=== PATIENT | female | born 1975 | race Caucasian/White ===

== ENCOUNTER 2017-01-24 05:21 | Emergency (ER) | payer BC ==
[~2017-01-24] VITALS: Ht 167.6 cm; Wt 112.9 kg
[2017-01-24 05:23] VITALS: TEMP 36.6; Ht 167.6 cm; Wt 112.9 kg
--- NOTE | 2017-01-24 05:48 | EMERGENCY ROOM VISIT NOTE ---
History Report prepared by Ulysses: Gary Loja Under the Supervision of: Dr. Shaunna Yan D.O. First contact with patient: 05:30 Chief Complaint: CHEST PAIN Stated Complaint: HEAVY CHEST,DISCOMFORT ON BOTH SIDES History of Present Illness The patient is a 41 year old female who presents to the Emergency Room with complaints of persistent chest discomfort that started over 24 hours ago. The patient describes the discomfort as a heavy feeling at the top of her chest. The patient also complains of discomfort going down both her sides. Prior to arrival, the patient was packing her car when she felt a sharp pain radiate down her left side which is why she decided to present to the ED for further evaluation. The patient notes she has had symptoms similar to the chest heaviness she is describing in the past, however, they have never lasted this long before. The patient also notes has had a cough that is not productive. She describes it as an "acid-y" cough similar to burning. She does have a history of GERD. The patient states that she has been under more stress lately and has a history of some anxiety. She started a prescription of Zoloft 25 mg yesterday. The patient states that the chest discomfort started before she took her first dose of Zoloft. The patient notes some swelling in her hands. The patient denies swelling or cramping in her legs, recent long travel, or pain with deep breath. She denies shortness of breath at this time. Source of History: patient Onset: over 24 hours ago Position: chest Quality: other (heaviness) Timing: other (persistent) Associated Symptoms: + cough, No SOB Note: Other associated symptoms: discomfort going down both sides, sharp pain in left side, more stress, swelling in hands Denies: swelling or cramping in legs, long travel, pain with deep breaths Review of Systems See HPI for pertinent positives & negatives. A total of 10 systems reviewed and were otherwise negative. Past Medical & Surgical Medical Problems: (1) Bronchitis (2) Diabetes Surgical Problems: (1) delivery delivered (2) Tonsillectomy planned Family History FH: cancer FH: diabetes mellitus FH: gallbladder disease FH: hypertension Social History Smoking Status: Never Smoker Drug Use: none Marital Status: Housing Status: lives with family Occupation Status: employed Current/Historical Medications Scheduled Famotidine (Pepcid), 40 MG PO DAILY Hctz/Losartan (Hyzaar 25MG/100MG), 1 TAB PO DAILY Insulin Aspart 70/30 (Novolog Mix 70/30), 68 UNITS SQ BIDM Insulin Glargine (Lantus Solostar), 50 UNITS SQ QPM Levocetirizine Dihydrochloride (Xyzal Allergy 24Hr), 5 MG PO DAILY Lorazepam (Ativan), 1 MG PO Q4 Sertraline (Zoloft), 25 MG PO DAILY Allergies Coded Allergies: Azithromycin (Verified Allergy, Unknown, hives, 01/24/17) Cephalexin (Verified Allergy, Unknown, hives, 01/24/17) Erythromycin (Verified Allergy, Unknown, HIVES, 01/24/17) Penicillins (Verified Allergy, Unknown, hives, 01/24/17) Physical Exam Vital Signs Date Time Temp Pulse Resp B/P Pulse Ox O2 Delivery O2 Flow Rate FiO2 01/24/17 06:59 70 12 148/107 98 Room Air 01/24/17 06:27 72 18 150/119 99 Room Air 01/24/17 05:38 Room Air 01/24/17 05:25 79 01/24/17 05:23 36.6 82 20 179/104 100 Room Air Physical Exam HEENT: Head - normocephalic and atraumatic Pupils are equal, round, and reactive to light. Extraocular eye muscles are intact, and sclera are anicteric. Nose - moist nasal mucosa without discharge. Mouth - moist buccal mucosa. Oropharynx is nonerythematous and there is no tonsillar exudate or edema noted. Neck: Supple; no JVD, nuchal rigidity, cervical lymphadenopathy, or auscultated bruits. Heart: Regular rate and rhythm. There is a normal S1 and S2 with no murmurs, clicks, or gallops appreciated. Lungs: Clear to auscultation bilaterally with no wheezes, rales, or rhonchi. Abdomen: Soft, completely nontender, nondistended, with good bowel sounds. There are no palpable pulsatile masses or hepatosplenomegaly. There is no guarding, rigidity, or rebound noted. Extremities: No evidence of cyanosis, clubbing, or edema. There are easily palpable peripheral pulses. Skin: warm and dry with good turgor and no rashes. Medical Decision & Procedures ER Provider Diagnostic Interpretation: Chest X-ray interpreted by me: Borderline cardiomegaly, no pulmonary infiltrate, no consolidation. Laboratory Results 01/24/17 05:35 Red Blood Count 4.81, Mean Corpuscular Volume 85.0, Mean Corpuscular Hemoglobin 29.1, Mean Corpuscular Hemoglobin Concent 34.2, Mean Platelet Volume 10.4, Neutrophils (%) (Auto) 41.1, Lymphocytes (%) (Auto) 48.7, Monocytes (%) (Auto) 6.2, Eosinophils (%) (Auto) 3.4, Basophils (%) (Auto) 0.4, Neutrophils # (Auto) 2.19, Lymphocytes # (Auto) 2.59, Monocytes # (Auto) 0.33, Eosinophils # (Auto) 0.18, Basophils # (Auto) 0.02 01/24/17 05:35 Test 01/24/17 05:35 01/24/17 06:52 White Blood Count 5.32 K/uL (4.8-10.8) Red Blood Count 4.81 M/uL (4.2-5.4) Hemoglobin 14.0 g/dL (12.0-16.0) Hematocrit 40.9 % (37-47) Mean Corpuscular Volume 85.0 fL (80-100) Mean Corpuscular Hemoglobin 29.1 pg (25-34) Mean Corpuscular Hemoglobin Concent 34.2 g/dl (32-36) Platelet Count 275 K/uL (130-400) Mean Platelet Volume 10.4 fL (7.4-10.4) Neutrophils (%) (Auto) 41.1 % Lymphocytes (%) (Auto) 48.7 % Monocytes (%) (Auto) 6.2 % Eosinophils (%) (Auto) 3.4 % Basophils (%) (Auto) 0.4 % Neutrophils # (Auto) 2.19 K/uL (1.4-6.5) Lymphocytes # (Auto) 2.59 K/uL (1.2-3.4) Monocytes # (Auto) 0.33 K/uL (0.11-0.59) Eosinophils # (Auto) 0.18 K/uL (0-0.5) Basophils # (Auto) 0.02 K/uL (0-0.2) RDW Standard Deviation 39.7 fL (36.4-46.3) RDW Coefficient of Variation 12.9 % (11.5-14.5) Immature Granulocyte % (Auto) 0.2 % Immature Granulocyte # (Auto) 0.01 K/uL (0.00-0.02) Anion Gap 6.0 mmol/L (3-11) Est Creatinine Clear Calc Drug Dose 130.5 ml/min Estimated GFR () 119.4 Estimated GFR (Non- 103.0 BUN/Creatinine Ratio 16.8 (10-20) Calcium Level 8.8 mg/dl (8.5-10.1) Total Bilirubin 0.7 mg/dl (0.2-1) Direct Bilirubin 0.1 mg/dl (0-0.2) Aspartate Amino Transf (AST/SGOT) 14 U/L (15-37) Alanine Aminotransferase (ALT/SGPT) 24 U/L (12-78) Alkaline Phosphatase 69 U/L (45-117) Total Protein 8.1 gm/dl (6.4-8.2) Albumin 3.8 gm/dl (3.4-5.0) Lipase 110 U/L (73-393) Thyroid Stimulating Hormone (TSH) 1.750 uIu/ml (0.300-4.500) Total Creatine Kinase 183 U/L (26-192) Creatine Kinase MB 6.4 ng/ml (0.5-3.6) Creatine Kinase MB Ratio 3.5 (0-3.0) Troponin I < 0.015 ng/ml (0-0.045) Laboratory results per my review. Medications Administered Medications (Trade) Dose Ordered Sig/Wm Route Start Time Stop Time Status Last Admin Dose Admin Lidocaine HCl (Viscous Lidocaine 2% Soln) 10 ml NOW STAT PO 01/24/17 05:49 01/24/17 05:50 DC 01/24/17 05:56 10 ML Al Hydroxide/Mg Hydroxide (Maalox Susp) 30 ml NOW STAT PO 01/24/17 05:49 01/24/17 05:50 DC 01/24/17 05:55 30 ML Lorazepam (Ativan Inj) 1 mg NOW STAT IV 01/24/17 06:20 01/24/17 06:21 DC 01/24/17 06:29 1 MG Procedure Maalox Susp PO Lidocaine HCl PO Ativan Inj IV Klor-Con Tab PO ECG Indication: chest pain Rate (beats per minute): 73 Rhythm: normal sinus Findings: no acute ischemic change, no ectopy Comparison ECG Date: no prior available ED Course 0536: Past medical records reviewed. The patient was evaluated in room A3. A complete history and physical exam was performed. An IV lock was initiated and labs were drawn as above. Twelve-lead EKG was obtained as described above. 0549: Ordered Maalox Susp 30 ml PO, Lidocaine HCl 10 ml PO. Patient had a portable chest x-ray as described above 0608: At this time, I reevaluated the patient and she said that the GI cocktail helped the acid in her throat a lot. She still seems anxious so medications were ordered. Her blood pressure was retaken and it was 150/119. 0620: Ordered Ativan Inj 1 mg IV. 0631: At this time, I reevaluated the patient and she still feels the chest heaviness. She was just administered the Ativan 10 minutes ago. Her cardiac enzymes will be repeated 90 minutes after the first set was drawn. 0710: Ordered Klor-Con Tab 20 meq PO. 0711: At this time, I reevaluated the patient and she was feeling much better. She states she feels more relaxed and her chest heaviness is resolved. Her repeat blood work was drawn a few minutes ago. 0735: Upon reevaluation, the patient is resting comfortably. She has a negative repeat troponin and total CK, CK-MB, and CK-MB ratio have decreased. I discussed findings and results with her. She verbalized agreement of the treatment plan. The patient was discharged home. Medical Decision The patient is a 41 year old female who presents to the ED with chest pain. Differential diagnosis includes anxiety, cardiac ischemia, hypertensive emergency, pleurisy, GERD or costochondritis. Labs interpreted by me: no leukocytosis, normal H&H, potassium 3.1, normal renal function, glucose 232, normal LFTs, normal TSH, troponin <0.015, total CK 226, CKMB 8.2, CKMB ratio 3.6. Repeat cardiac enzymes: troponin still <0.015, total CK came down to 183, CKMB down to 6.4, CKMB ratio down to 3.5. This is a 41-year-old female patient who is morbidly obese with history of diabetes who presents to the emergency department with some chest tightness and acid in her throat. I believe the patient is having some exacerbation of GERD. The GI cocktail has helped. However, she does have some component of anxiety. She is significantly hypertensive and has moderate hyperglycemia. Patient was also noted to be hypokalemic. The patient recently started Zoloft. I've asked her to continue this as it may potentially improve her blood pressure. Otherwise, the patient will need close follow-up with her PCP with regards to the blood pressure and hyperglycemia. The patient was told to return to the ER for worsening chest discomfort. She was asked to limit her stress and anxiety. She was given a script for ativan Impression Primary Impression: Chest heaviness Additional Impressions: Hypokalemia Hyperglycemia due to type 2 diabetes mellitus Scribe Attestation The scribe's documentation has been prepared under my direction and personally reviewed by me in its entirety. I confirm that the note above accurately reflects all work, treatment, procedures, and medical decision making performed by me. Departure Information Dispostion Home / Self-Care Prescriptions Lorazepam (ATIVAN) 1 Mg Tab 1 MG PO Q4 for Anxiety, #20 TAB Prov: Shaunna Yan, D.OEmmanuelle 01/24/17 Referrals Jared Ortez MD (PCP) Forms HOME CARE DOCUMENTATION FORM, IMPORTANT VISIT INFORMATION Patient Instructions Anxiety Body Response, ED Chest Pain Atypical Unkn Cause, ED Hyperglycemia Diabetic, Hypokalemia Dc, My [facility] Additional Instructions Rest. Limit stress and anxiety Watch your BP closely - follow up with your PCP. Watch your blood sugar closely and follow up with PCP. REturn to the ER for worsening chest discomfort. Take foods high in potassium Problem Qualifiers
[2017-01-24] MEDS ORDERED: LIDOCAINE HCL 2% VISC SOLN 20 ML UDC PO STA (05:49)
[2017-01-24] MEDS ORDERED: ALUMINUM/MAGNESIUM SUSP 30 ML UDC PO STA (05:49)
[2017-01-24] MEDS ORDERED: FAMO40TA6 PO (05:51)
[2017-01-24] MEDS ORDERED: HYZ/10015 PO (05:52)
[2017-01-24] MEDS ORDERED: LEVO5TAB7 PO (05:55)
[2017-01-24] MEDS ORDERED: INSDGIPEN SQ (05:56)
[2017-01-24 05:58] LABS: BASO % 0.4 %; BASO ABS # 0.02 K/uL (0-0.2); COMPLETE YES; EOS % 3.4 %; HEMATOCRIT 40.9 % (37-47); IG% 0.2 %; LYMPH % 48.7 %; LYMPH ABS # 2.59 K/uL (1.2-3.4); MEAN CORPUSCULAR HEMOGLOBIN 29.1 pg (25-34); MEAN CORPUSCULAR HGB CONC 34.2 g/dl (32-36); MEAN PLATELET VOLUME 10.4 fL (7.4-10.4); MONO % 6.2 %; NEUT % 41.1 %; PLATELET COUNT 275 K/uL (130-400); RED BLOOD COUNT 4.81 M/uL (4.2-5.4); WHITE BLOOD COUNT 5.32 K/uL (4.8-10.8)
[2017-01-24] MEDS ORDERED: NVLGI7030 SQ (05:58)
[2017-01-24] MEDS ORDERED: SERT50TA PO (06:00)
[2017-01-24 06:08] LABS: ALT/SGPT 24 U/L (12-78); AST/SGOT 14 U/L (15-37); BLOOD UREA NITROGEN 12 mg/dl (7-18); BUN/CREATININE RATIO 16.8 (10-20); CALCIUM 8.8 mg/dl (8.5-10.1); CARBON DIOXIDE 30 mmol/L (21-32); CHLORIDE 104 mmol/L (98-107); CREATININE 0.73 mg/dl (0.60-1.20); GLUCOSE 232 mg/dl (70-99); POTASSIUM 3.1 mmol/L (3.5-5.1); SODIUM 140 mmol/L (136-145)
[2017-01-24 06:19] LABS: ALKALINE PHOSPHATASE 69 U/L (45-117); CKMB/CK RATIO 3.6 (0-3.0)
[2017-01-24] MEDS ORDERED: LORAZEPAM 2 MG/ML 1 ML VIAL IV STA (06:20)
[2017-01-24] MEDS ORDERED: POTASSIUM CHLORIDE 20 MEQ TABCR PO STA (07:10)
[2017-01-24 07:22] LABS: CKMB/CK RATIO 3.5 (0-3.0)
[2017-01-24] MEDS ORDERED: ATV/1 PO (07:38)
[2017-01-24 07:54] VITALS: BP 134/100; PULSE 81; O2SAT 97
--- NOTE | 2017-01-24 08:31 | DIAGNOSTIC IMAGING REPORT ---
SINGLE VIEW CHEST CLINICAL HISTORY: Atypical chest pain. FINDINGS: An AP, portable, upright chest radiograph is obtained. No prior studies are available for comparison at the time of dictation. The examination is degraded by portable technique, large body habitus, and patient rotation. The cardiomediastinal silhouette is unremarkable. The lungs and pleural spaces are clear. No pneumothorax is seen. The bony thorax is grossly intact. IMPRESSION: No active disease in the chest. Electronically signed by: Jaylen Lugo M.D. 01/24/2017 8:29 AM Dictated Date/Time: 01/24/2017 8:29 AM
== END 2017-01-24 07:57 | disposition home or self-care (01) ==
LOC: C.EDB 05:22 → C.EDA 07:57
DX: R07.89 Other chest pain (principal); E87.6 Hypokalemia; E11.65 Type 2 diabetes mellitus with hyperglycemia; K21.9 Gastro-esophageal reflux disease without esophagitis; Z98.890 Other specified postprocedural states; Z79.4 Long term (current) use of insulin; Z79.899 Other long term (current) drug therapy; Z88.0 Allergy status to penicillin; Z88.1 Allergy status to other antibiotic agents; Z88.8 Allergy status to other drugs, medicaments and biological substances; Z80.9 Family history of malignant neoplasm, unspecified; Z83.3 Family history of diabetes mellitus; Z83.79 Family history of other diseases of the digestive system; Z82.49 Family history of ischemic heart disease and other diseases of the circulatory system

== ENCOUNTER 2017-02-14 22:30 | Emergency (ER) | payer BC ==
[~2017-02-14] VITALS: Ht 167.6 cm; Wt 110.1 kg
[~2017-02-14 22:30] MED LIST: FAMO40TA6 PO; HYZ/10015 PO; INSDGIPEN SQ; LEVO5TAB7 PO; NVLGI7030 SQ; SERT50TA PO
[2017-02-14 22:32] VITALS: TEMP 36.7; Ht 167.6 cm; Wt 110.1 kg
[2017-02-14] MEDS ORDERED: KETOROLAC TROMETHAMINE 30 MG/ML VIAL IV STA (22:44)
--- NOTE | 2017-02-14 22:54 | EMERGENCY ROOM VISIT NOTE ---
History Report prepared by Ulysses: Neal Carr Under the Supervision of: Dr. Giacomo Morin M.D. First contact with patient: 22:34 Chief Complaint: ABDOMINAL PAIN Stated Complaint: PAIN UPPER RIGHT SIDE-GALLBLADDER? History of Present Illness The patient is a 41 year old female who presents to the Emergency Room with complaints of worsening, right upper quadrant, abdominal pain beginning two hours ago. The patient states that she has had intermittent right upper quadrant abdominal pain for a couple of months. She notes that she suspects it is gallbladder issues because she has a strong family history of gallbladder disease. She reports that her pain began tonight, and it would not go away. The patient notes that she is also nauseous. She reports that for dinner she ate noodles and chicken. The patient states that she has cut fast food from her diet because of her suspected issues. She notes that she has not seen anyone for her symptoms and has had 2 children. The patient denies chest pain, shortness of breath, fevers, vomiting, vaginal bleeding or discharge, headaches , rashes, cough, back pain, and chance of being . She states that she has type II diabetes mellitus, and she takes NovoLog and Lantus. Source of History: patient Onset: two hours ago Position: abdomen (RUQ) Timing: worsening Associated Symptoms: + nausea, No fevers, No headache, No cough, No chest pain, No SOB, No vomiting, No back pain, No rash Note: The patient denies vaginal bleeding or discharge and chance of being . Review of Systems See HPI for pertinent positives & negatives. A total of 10 systems reviewed and were otherwise negative. Past Medical & Surgical Medical Problems: (1) Bronchitis (2) Diabetes Surgical Problems: (1) delivery delivered (2) Tonsillectomy planned Old medical records were reviewed. Nurse's notes were reviewed and I agree with. Family History FH: cancer FH: diabetes mellitus FH: gallbladder disease FH: hypertension Social History Smoking Status: Never Smoker Drug Use: none Marital Status: Housing Status: lives with family Occupation Status: employed Current/Historical Medications Scheduled Famotidine (Pepcid), 40 MG PO DAILY Hctz/Losartan (Hyzaar 25MG/100MG), 1 TAB PO DAILY Insulin Aspart 70/30 (Novolog Mix 70/30), 68 UNITS SQ BIDM Insulin Glargine (Lantus Solostar), 50 UNITS SQ QPM Levocetirizine Dihydrochloride (Xyzal Allergy 24Hr), 5 MG PO DAILY Sertraline (Zoloft), 25 MG PO DAILY Allergies Coded Allergies: Azithromycin (Verified Allergy, Unknown, hives, 01/24/17) Cephalexin (Verified Allergy, Unknown, hives, 01/24/17) Erythromycin (Verified Allergy, Unknown, HIVES, 01/24/17) Penicillins (Verified Allergy, Unknown, hives, 01/24/17) Physical Exam Vital Signs Date Time Temp Pulse Resp B/P (MAP) Pulse Ox O2 Delivery O2 Flow Rate FiO2 02/14/17 22:32 36.7 82 18 180/88 98 Room Air Physical Exam General: Non-ill appearing, mild pain, middle aged female. HEENT: Normal cephalic atraumatic. Pupils are equal round and reactive to light. Extraocular movements are intact. Oropharynx is pink with moist mucous membranes. No swelling of the mouth lips or tongue. Neck: Supple with a midline trachea. No meningeal signs or stiffness, no JVD or bruits. No Stridor. Chest: Clear to auscultation bilaterally. No wheezes or rhonchi. No increased work of breathing. Heart: regular rate and rhythm. Abdomen: Soft, nondistended without rebound guarding or rigidity. Mild tenderness to the RUQ Extremities: No cyanosis clubbing or edema. No calf tenderness or assymetry Spine/Back. Non tender to palpation. No CVA tenderness Skin: Good turgor without rashes. Neurologic exam: Cranial nerves two through 12 are intact. Motor and sensation are intact and symmetrical throughout. Medical Decision & Procedures ER Provider Diagnostic Interpretation: Radiology results as stated below per my review and radiologist interpretation: Chest x-ray per my interpretation reveals no pneumothorax, failure, or infiltrate. US GALLBLADDER: No gallstones. Gallbladder wall is top normal in thickness. Negative sonographic Daniels sign. No pericholecystic fluid. No biliary dilation. The liver parenchyma is increased in echogenicity suggestive of fatty infiltration. Liver measures 18.4cm long. Right kidney is unremarkable. No free fluid. Radiologist: Griffin Lopez MD Study ready at 00:52 and initial results transmitted at 01:38 Laboratory Results 02/14/17 23:05 Red Blood Count 4.54, Mean Corpuscular Volume 83.3, Mean Corpuscular Hemoglobin 28.0, Mean Corpuscular Hemoglobin Concent 33.6, Mean Platelet Volume 10.5, Neutrophils (%) (Auto) 45.0, Lymphocytes (%) (Auto) 41.9, Monocytes (%) (Auto) 9.5, Eosinophils (%) (Auto) 3.2, Basophils (%) (Auto) 0.3, Neutrophils # (Auto) 3.23, Lymphocytes # (Auto) 3.01, Monocytes # (Auto) 0.68, Eosinophils # (Auto) 0.23, Basophils # (Auto) 0.02 02/14/17 23:05 Test 02/14/17 23:01 02/14/17 23:05 02/14/17 23:12 Urine Color DK YELLOW Urine Appearance CLOUDY (CLEAR) Urine pH 5.5 (4.5-7.5) Urine Specific [place] 1.036 (1.000-1.030) Urine Protein NEG (NEG) Urine Glucose (UA) 3+ (NEG) Urine Ketones TRACE (NEG) Urine Occult Blood NEG (NEG) Urine Nitrite NEG (NEG) Urine Bilirubin NEG (NEG) Urine Urobilinogen NEG (NEG) Urine Leukocyte Esterase NEG (NEG) Urine WBC (Auto) 10-30 /hpf (0-5) Urine RBC (Auto) 0-4 /hpf (0-4) Urine Hyaline Casts (Auto) 0 /lpf (0-5) Urine Epithelial Cells (Auto) >30 /lpf (0-5) Urine Bacteria (Auto) 2+ (NEG) Urine Pathogenic Casts /lpf (0) Urine Yeast (Auto) PRESENT (NONE PRSENT) White Blood Count 7.18 K/uL (4.8-10.8) Red Blood Count 4.54 M/uL (4.2-5.4) Hemoglobin 12.7 g/dL (12.0-16.0) Hematocrit 37.8 % (37-47) Mean Corpuscular Volume 83.3 fL (80-100) Mean Corpuscular Hemoglobin 28.0 pg (25-34) Mean Corpuscular Hemoglobin Concent 33.6 g/dl (32-36) Platelet Count 259 K/uL (130-400) Mean Platelet Volume 10.5 fL (7.4-10.4) Neutrophils (%) (Auto) 45.0 % Lymphocytes (%) (Auto) 41.9 % Monocytes (%) (Auto) 9.5 % Eosinophils (%) (Auto) 3.2 % Basophils (%) (Auto) 0.3 % Neutrophils # (Auto) 3.23 K/uL (1.4-6.5) Lymphocytes # (Auto) 3.01 K/uL (1.2-3.4) Monocytes # (Auto) 0.68 K/uL (0.11-0.59) Eosinophils # (Auto) 0.23 K/uL (0-0.5) Basophils # (Auto) 0.02 K/uL (0-0.2) RDW Standard Deviation 38.7 fL (36.4-46.3) RDW Coefficient of Variation 12.8 % (11.5-14.5) Immature Granulocyte % (Auto) 0.1 % Immature Granulocyte # (Auto) 0.01 K/uL (0.00-0.02) Anion Gap 10.0 mmol/L (3-11) Est Creatinine Clear Calc Drug Dose 144.6 ml/min Estimated GFR () 128.7 Estimated GFR (Non- 111.1 BUN/Creatinine Ratio 21.8 (10-20) Calcium Level 8.6 mg/dl (8.5-10.1) Total Bilirubin 0.3 mg/dl (0.2-1) Direct Bilirubin < 0.1 mg/dl (0-0.2) Aspartate Amino Transf (AST/SGOT) 10 U/L (15-37) Alanine Aminotransferase (ALT/SGPT) 22 U/L (12-78) Alkaline Phosphatase 82 U/L (45-117) Total Protein 7.1 gm/dl (6.4-8.2) Albumin 3.5 gm/dl (3.4-5.0) Lipase 173 U/L (73-393) Human Chorionic Gonadotropin, Qual NEG (NEG) Bedside Troponin I < 0.030 ng/ml (0-0.045) Laboratory studies as stated above per my review. Medications Administered Medications (Trade) Dose Ordered Sig/Wm Route Start Time Stop Time Status Last Admin Dose Admin Ketorolac Tromethamine (Toradol Inj) 30 mg NOW STAT IV 02/14/17 22:44 02/14/17 22:48 DC 02/14/17 23:13 30 MG ECG Indication: abdominal pain Rate (beats per minute): 70 Rhythm: normal sinus Findings: no acute ischemic change, no ectopy Comparison ECG Date: 01/24/17 Change: no significant change ED Course 2234: Past medical records reviewed. The patient was evaluated in room B07, and a complete history and physical examination were performed. 2243: Ordered Toradol Inj 30mg IV 0110: I reevaluated the patient. She is resting comfortably and waiting for her US report. She states the Toradol helped. 0158: Upon reevaluation, the patient is resting comfortably. I discussed the results and treatment plan with her. She verbalized agreement of the treatment plan. The patient was discharged home. Medical Decision Differential diagnosis includes: peptic ulcer, gallbladder disease, pulmonary disease, infection, electrolyte metabolic abnormality. Medication Reconciliation: I attest that I have personally reviewed the patient' s current medication list. Blood pressure Screening: Patient was found to have an elevated blood pressure and was referred to their primary doctor for recheck and further treatment. This patient comes in as described above. She's had right upper quadrant abdominal pain. She's had this off and on for several months. Tonight it's more persistent . She's been worried about her gallbladder as it runs heavily in the family. She also has the risk factors of being in her 40s and having several children. She looks well. She has no peritonitis. IV access established and she was hydrated with IV normal saline. I did give her Toradol 30 mg IV. EKG does not suggest acute coronary syndrome or arrhythmia. Chest x- ray was unremarkable. there is nothing the base on the right or any pneumothorax. She has no elevation of liver functions her lipase. An ultrasound was obtained. There is no definite acute gallbladder abnormalities. She feels better and would like to go home. It's could still be the gallbladder and she may ultimately need a HIDA scan or further workup she should likely have a GI workup as well. I recommend she follow with her regular doctor and he is in mild diet. Return if: fever or chills, worsening of symptoms, increasing pain or problems, any new problems or concerns. Impression Primary Impression: RUQ abdominal pain Scribe Attestation The scribe's documentation has been prepared under my direction and personally reviewed by me in its entirety. I confirm that the note above accurately reflects all work, treatment, procedures, and medical decision making performed by me. Departure Information Dispostion Home / Self-Care Referrals Jared Ortez MD (PCP) Forms Call Back Authorization, HOME CARE DOCUMENTATION FORM, IMPORTANT VISIT INFORMATION Patient Instructions My [facility] Additional Instructions Rest. Mild diet. Return if: Increasing pain, fever or chills, worsening symptoms, any new problems or concerns. Your blood pressure tonight was moderately elevated although this may be related to pain. Have your doctor recheck it in follow-up You should follow-up with your doctor this week for recheck and U may need further GI workup to rule out ulcers, gallbladder, and other problems
[2017-02-14 23:24] LABS: MANUAL MICROSCOPIC REQUIRED? NO; REVIEW REQ? YES; URINE APPEARANCE CLOUDY (CLEAR); URINE BILIRUBIN NEG (NEG); URINE COLOR DK YELLOW; URINE EPITHELIAL CELL AUTO >30 /lpf (0-5); URINE NITRITE NEG (NEG); URINE PH 5.5 (4.5-7.5); URINE SPECIFIC GRAVITY 1.036 (1.000-1.030); UROBILINOGEN NEG (NEG)
[2017-02-14 23:30] LABS: BASO % 0.3 %; BASO ABS # 0.02 K/uL (0-0.2); COMPLETE YES; EOS % 3.2 %; HEMATOCRIT 37.8 % (37-47); IG% 0.1 %; LYMPH % 41.9 %; LYMPH ABS # 3.01 K/uL (1.2-3.4); MEAN CELL VOLUME 83.3 fL (80-100); MEAN CORPUSCULAR HGB CONC 33.6 g/dl (32-36); MEAN PLATELET VOLUME 10.5 fL (7.4-10.4); MONO % 9.5 %; PLATELET COUNT 259 K/uL (130-400); RED BLOOD COUNT 4.54 M/uL (4.2-5.4); WHITE BLOOD COUNT 7.18 K/uL (4.8-10.8)
[2017-02-14 23:48] LABS: ALT/SGPT 22 U/L (12-78); AST/SGOT 10 U/L (15-37); BLOOD UREA NITROGEN 14 mg/dl (7-18); BUN/CREATININE RATIO 21.8 (10-20); CALCIUM 8.6 mg/dl (8.5-10.1); CARBON DIOXIDE 27 mmol/L (21-32); CHLORIDE 105 mmol/L (98-107); CREATININE 0.65 mg/dl (0.60-1.20); GLUCOSE 236 mg/dl (70-99); POTASSIUM 3.2 mmol/L (3.5-5.1); SODIUM 142 mmol/L (136-145)
[2017-02-14 23:51] LABS: ALKALINE PHOSPHATASE 82 U/L (45-117); PREG INTERNAL NEGATIVE QC NEG CLEAR BACKGROUND; PREG INTERNAL POSITIVE QC POS CONTROL LINE
[2017-02-15 02:35] VITALS: BP 123/71; PULSE 76; O2SAT 98
--- NOTE | 2017-02-15 07:39 | DIAGNOSTIC IMAGING REPORT ---
ABDOMINAL ULTRASOUND, RIGHT UPPER QUADRANT HISTORY: Right upper quadrant abdominal pain. eval for gallbladder dx. COMPARISON: None. FINDINGS: Pancreas: The pancreatic head and tail are obscured by overlying bowel gas. The remaining portions of the pancreas are within normal limits. Liver: The liver is echogenic consistent with fatty change. Gallbladder: No gallbladder wall thickening. No gallstones. CBD: 4 mm. Right kidney: No hydronephrosis. IMPRESSION: 1. Normal gallbladder. No gallstones.. 2. Hepatic steatosis. Electronically signed by: Cheikh Ramirez M.D. 02/15/2017 7:38 AM Dictated Date/Time: 02/15/2017 7:37 AM
--- NOTE | 2017-02-15 08:45 | DIAGNOSTIC IMAGING REPORT ---
CHEST ONE VIEW PORTABLE HISTORY: Atypical CHEST PAIN COMPARISON: Chest 01/24/2017. FINDINGS: The lungs are clear. Cardiac silhouette is normal in size. No pleural effusions. No pneumothorax. IMPRESSION: No acute process. Electronically signed by: Cheikh Ramirez M.D. 02/15/2017 8:44 AM Dictated Date/Time: 02/15/2017 8:42 AM
== END 2017-02-15 02:36 | disposition home or self-care (01) ==
LOC: C.EDB 22:31
DX: R10.11 Right upper quadrant pain (principal); E11.9 Type 2 diabetes mellitus without complications; Z79.4 Long term (current) use of insulin; Z80.9 Family history of malignant neoplasm, unspecified; Z83.3 Family history of diabetes mellitus; Z82.49 Family history of ischemic heart disease and other diseases of the circulatory system; Z79.899 Other long term (current) drug therapy